=== PATIENT | female | born 1990 | race Caucasian/White ===

== ENCOUNTER 2016-09-17 09:36 | Inpatient (IN) | payer OTHER ==
[2016-09-17] MEDS ORDERED: OBEPIDURAL* 250 ML ONE (10:39)
[2016-09-17 10:54] LABS: Hematocrit 37 % (35-47); Hemoglobin 12.4 g/dl (12.0-16.0); Mean Corpuscular HGB Conc 34 g/dl (31-36); Mean Corpuscular Hemoglobin 32 pg (27-31); Mean Corpuscular Volume 95 fL (80-97); Mean Platelet Volume 9 um3 (7.4-10.4); Red Blood Count 3.88 10^6/ul (4.0-5.4); Red Cell Distribution Width 14 % (10.5-15); White Blood Count 13.7 10^3/ul (3.5-10.8)
[2016-09-17] MEDS ORDERED: EPHEDrine (Pressors)* 50 MG/ML VIAL IV PUSH PRN ×2 (12:28)
[2016-09-17] MEDS ORDERED: Famotidine TAB* 20 MG PO PRN (12:28)
[2016-09-17] MEDS ORDERED: Phenylephrine IV* 40 MCG/ML 10 ML SYRINGE IV PUSH PRN ×2 (12:28)
[2016-09-17] MEDS ORDERED: Sodium Citrate/Citric Acid* 15 ML UDC PO PRN (12:28)
[2016-09-17] MEDS ORDERED: OBEPIDURAL* 250 ML EPIDURAL SCH (13:00)
[2016-09-17] MEDS ORDERED: Dibucaine 1% 28.35 GM TUBE PR PRN (16:49)
[2016-09-17] MEDS ORDERED: Witch Hazel PAD* JAR TOPICAL PRN (16:49)
[2016-09-17] MEDS ORDERED: Acetaminophen TAB* 325 MG PO PRN (16:49)
[2016-09-17] MEDS ORDERED: Glycerin ADULT SUPP PR PRN (16:49)
[2016-09-17] MEDS ORDERED: Ibuprofen TAB* 600 MG ONE (16:49)
[2016-09-17] MEDS: Docusate CAP* 100 MG PO SCH (20:07)
[2016-09-17] MEDS: Simethicone CHEW TAB* 80 MG PO SCH (21:41)
[2016-09-17] MEDS: Ibuprofen TAB* 600 MG PO PRN (22:41)
[2016-09-18] MEDS: Ibuprofen TAB* 600 MG PO PRN ×3 (07:11→19:30)
[2016-09-18 07:33] LABS: Hematocrit 35 % (35-47); Hemoglobin 11.5 g/dl (12.0-16.0); Mean Corpuscular HGB Conc 33 g/dl (31-36); Mean Corpuscular Hemoglobin 31 pg (27-31); Mean Corpuscular Volume 94 fL (80-97); Mean Platelet Volume 9 um3 (7.4-10.4); Red Blood Count 3.68 10^6/ul (4.0-5.4); Red Cell Distribution Width 14 % (10.5-15); White Blood Count 16.9 10^3/ul (3.5-10.8)
[2016-09-18] MEDS ORDERED: Ferrous Gluconate TAB* 324 MG TAB PO SCH (09:00)
[2016-09-18] MEDS: Docusate CAP* 100 MG PO SCH ×3 (10:54→21:54)
[2016-09-19] MEDS: Ibuprofen TAB* 600 MG PO PRN ×2 (02:16→10:13)
[2016-09-19] MEDS: Docusate CAP* 100 MG PO SCH (10:14)
[2016-09-19 10:35] VITALS: BP 89/55
== END 2016-09-19 14:06 | disposition home or self-care (01) | DRG 775 ==
LOC: MCHOBOUT 09:36 → MCHOB 10:32
PROVIDERS: ADMIT Obstetrics & Gynecology; ATTEND Obstetrics & Gynecology
PROC: 10E0XZZ Delivery of Products of Conception, External Approach (ICD-10-PCS; principal; 2016-09-17)
PROC: 0KQM0ZZ Repair Perineum Muscle, Open Approach (ICD-10-PCS; 2016-09-17)
PROC: 10907ZC Drainage of Amniotic Fluid, Therapeutic from Products of Conception, Via Natural or Artificial Opening (ICD-10-PCS; 2016-09-17)
DX: O48.0 Post-term pregnancy (principal); O99.824 Streptococcus B carrier state complicating childbirth; O70.1 Second degree perineal laceration during delivery; Z3A.40 40 weeks gestation of pregnancy; Z37.0 Single live birth
CPT/HCPCS: 36415; 85025; 86850; 86900; 86901; A9270-GY